=== PATIENT | male | born 1955 | race Caucasian/White ===

== ENCOUNTER 2018-09-24 11:23 | Emergency (ER) | payer MEDICARE ==
[~2018-09-24] VITALS: Ht 188 cm; Wt 97.5 kg
--- NOTE | 2018-09-24 11:47 | NUR ---
pt was evaluated by dr londono. pt was d/c'd to home. d/c instructions given to the pt.
[2018-09-24 11:48] VITALS: BP 136/71
== END 2018-09-24 11:57 | disposition home or self-care (01) ==
LOC: ER 11:23
DX: H10.9 Unspecified conjunctivitis (principal); Z88.8 Allergy status to other drugs, medicaments and biological substances; Z91.030 Bee allergy status
CPT/HCPCS: A4663

== ENCOUNTER 2025-02-21 15:15 | Emergency (ER) | payer MEDICARE, BC ==
[~2025-02-21] VITALS: Ht 182.9 cm; Wt 96.2 kg
[2025-02-21 15:16] VITALS: BP 128/72; O2SAT 97
[2025-02-21 15:46] LABS: PLATELET COUNT (AUTO) 253 K/uL (152-348); RED BLOOD CELL COUNT(AUTO) 4.59 MIL/uL (4.06-5.63); RED CELL DISTRIBUTION WIDTH 12.8 % (12.1-16.2); WHITE BLOOD COUNT (AUTO) 6.8 K/uL (3.6-10.2)
[2025-02-21 15:57] LABS: CREATININE 1.0 mg/dL (0.6-1.3); SODIUM SERUM 142 mmol/L (136-145); UREA NITROGEN, BLOOD 12 mg/dL (7-18)
[2025-02-21 16:14] LABS: ASPARTATE AMINOTRANSFERASE 17 U/L (15-37)
[2025-02-21 16:25] LABS: TOTAL PROTEIN, SERUM 6.7 g/dL (6.4-8.2)
== END 2025-02-21 16:28 | disposition left against medical advice (07) ==
LOC: ER 15:15
DX: T42.4X1A Poisoning by benzodiazepines, accidental (unintentional), initial encounter (principal); R07.9 Chest pain, unspecified; Z88.6 Allergy status to analgesic agent; Z91.030 Bee allergy status; Y92.89 Other specified places as the place of occurrence of the external cause
CPT/HCPCS: 36415; 84484; 85025; A4606; A4663